=== PATIENT | female | born 1965 | race Caucasian/White ===

== ENCOUNTER 2017-11-08 02:44 | Outpatient (CLI) | payer MEDICARE, SELFPAY ==
[2017-11-08 12:00] LABS: ALT 19 U/L (12-78); AST 22 U/L (15-37); Albumin 3.7 g/dL (3.4-5.0); Alkaline Phosphatase 113 U/L (46-116); Anion Gap 8.2 mmol/L (3-11); BUN 10 mg/dL (7-18); Bilirubin, Total 0.3 mg/dL (0.2-1.0); CO2 30.8 mmol/L (21.0-32.0); CREATININE 0.79 mg/dL (0.55-1.02); Calcium 9.3 mg/dL (8.5-10.1); Chloride 99 mmol/L (98-107); Glucose 116 mg/dL (70-100); Potassium 4.8 mmol/L (3.5-5.1); Sodium 138 mmol/L (136-145); TSH (W/Ref FT4) 2.54 uIU/mL (0.358-3.74); Total Protein 7.8 g/dL (6.4-8.2)
== END 2017-11-08 03:04 ==
PROVIDERS: PCP Nurse Practitioner; Visit Provider Nurse Practitioner
DX: E03.9 Hypothyroidism, unspecified (principal)
CPT/HCPCS: 36415; 80053; 84443

== ENCOUNTER 2019-08-02 02:25 | Outpatient (CLI) | payer MEDICARE, SELFPAY ==
[2019-08-02 15:23] LABS: ALT 22 U/L (14-59); AST 26 U/L (15-37); Albumin 3.7 g/dL (3.4-5.0); Alkaline Phosphatase 108 U/L (46-116); Anion Gap 8.5 mmol/L (3-11); BUN 8 mg/dL (7-18); Bilirubin, Total 0.4 mg/dL (0.2-1.0); CO2 28.5 mmol/L (21.0-32.0); CREATININE 0.75 mg/dL (0.55-1.02); Calcium 8.9 mg/dL (8.5-10.1); Calculated LDL 134 mg/dL (<100); Chloride 98 mmol/L (98-107); Cholesterol 218 mg/dL (<200); Glucose 117 mg/dL (74-106); HDL Cholesterol 68 mg/dL (40-60); Sodium 135 mmol/L (136-145); TSH (W/Ref FT4) 2.85 uIU/mL (0.36-3.74); Total Protein 7.3 g/dL (6.4-8.2); Triglyceride 83 mg/dL (<150)
== END 2019-08-02 02:45 ==
PROVIDERS: PCP Nurse Practitioner; Visit Provider Nurse Practitioner
DX: R73.9 Hyperglycemia, unspecified (principal); E03.9 Hypothyroidism, unspecified; E78.5 Hyperlipidemia, unspecified
CPT/HCPCS: 36415; 80053; 80061; 84443

== ENCOUNTER 2019-08-08 09:55 | Emergency (ER) | payer MEDICARE, SELFPAY ==
[2019-08-08 09:57] VITALS: BP 132/82; PULSE 70; RESP 15; TEMP 37.1; O2SAT 95
--- NOTE | 2019-08-08 10:00 | DI.RAD_ITS ---
EXAM: XR KNEE LT 4V+ CLINICAL HISTORY: fall/injury. TECHNIQUE: 2D digital imaging was performed. COMPARISON: No exams were available for comparison FINDINGS: The bones are diffusely osteopenic. The patella is laterally subluxed. No acute fracture or disloca tion is seen. Chondrocalcinosis of the femoral tibial joint is present. The soft tissues are unrema rkable. IMPRESSION: 1. No acute fracture. 2. Lateral subluxation of the patella. DATA REPOSITORY: RADIATION DOSE DELIVERED:
--- NOTE | 2019-08-08 10:04 | W.ED.GENAD ---
Discharge Plan Disposition Patient Disposition: HOME Condition: Stable Discharge Details Chief Complaint: Orthopedic Clinical Impression: Effusion of knee Primary Care Provider: Chayo Tracey ED Provider: Valdemar Sullivan Home Meds and New Rx's Prescriptions: Continued levothyroxine 50 mcg tablet 50 mcg PO DAILY RF: 0 Discharge Instructions Instructions: Knee Pain (ED) Additional Instructions: As we discussed there is no fracture. There is a small joint effusion seen. What appears to be a chronic subluxation of the patella. I did have care management talkative additional resources, please follow their recommendations. I will give you a referral to orthopedics if conservative therapy of resting, elevating, cool compresses, [id number] Tylenol as directed, does not help with the discomfort in the next 3-5 days. Please watch for new or worsening symptoms and return to the ER for any concerns Referrals: Solo Green MD [ [facility] STAFF PHYSICIAN] - Medical Decision Making Pleasant 53-year-old female with Down syndrome, nonverbal, fell on , now increasing left knee pain, not wanting to bear weight. Patient does have a walker at home the walker does have a seat and she is able to scoot around. Neuro, vascular, tendon intact. Appears to have a baseline deformity-subluxation. Will obtain x-ray for further evaluation X-ray read by radiology as no obvious fracture, subluxation noted of the patella. Given that she does live at home with her mother, I did have care management get involved in the case to see if any additional home resources could be beneficial, please see their note. Discussed x-ray findings with patient and family. Given the limited evaluation and x-ray, will obtain CT imaging for further investigation as a fracture may change the overall outcome. Will give 1 mg p.o. Ativan and try a soft leg immobilizer to keep the knee fairly straight during the CT. Patient tolerated CT without difficulty. There is a small joint effusion. No acute fracture. Lateral subluxation of the patella. Discussed findings with patient and mother. Again mother reports that the subluxation is baseline. Discussed options with mother. She does not request any additional assistance and feels as though she cannot adequately handle the situation at home. Patient will continue using walker, and I will provide orthopedic referral. HPI General Mode of arrival: EMS. Date/Time Provider Initiated Documentation: 08/08/19 09:59. Limitations to Documentation: language barrier. Information obtained by: patient, family and EMS. HPI Narrative: This is a 53-year-old female with history of Down syndrome, hypothyroidism, who is essentially nonverbal presents with EMS and her mother for evaluation of a left knee injury that occurred on . Patient typically ambulates with a walker and mother reports that she has a baseline patella issue however has been told it is not bothering her that orthopedics would not aggressively treat. Apparently on she had a twist or fall injury while in the bathroom, this was not witnessed but mother was in the other room, heard it happened, went directly into the room and she was rubbing her left knee. Denies any other injury. Mother reports that she did not strike her head, has been using her upper extremities normally, and she was actually able to bear weight using a walker on and Wednesday. It seems like the pain in her left knee has progressively gotten worse over the past few days to the point now where she is not able to bear weight even using a walker. Given she is nonverbal, history and physical is slightly challenging. Mother currently has no additional concerns and believes that the only issue at hand here is that of a left knee injury. Related Data Home Medications Medication Instructions Recorded Confirmed levothyroxine 50 mcg PO DAILY 08/08/19 08/08/19 Allergies Allergy/AdvReac Type Severity Reaction Status Date / Time No Known Allergies Allergy Unverified 08/08/19 10:04 General Stated Complaint: Orthopedic PAPITO: 4 Review of Systems Constitutional Constitutional: Denies fever(s) Gastrointestinal Gastrointestinal: Denies vomiting Integumentary/Breasts Skin/Breast: Denies rash [facility] Medical History Down syndrome (Acute) Hip dislocation, right (Acute) Hypothyroidism (Chronic) Surgical History Previous back surgery (Acute) Social History Smoking/Tobacco Use Status: Never Alcohol Intake: never Substance use type: does not use Do you feel safe at home: Yes Do you feel safe in your relationship?: Yes Exam Const General: cooperative, healthy appearing, comfortable and no acute distress Orientation: alert and awake [facility] Head: normal to inspection, normocephalic and atraumatic Mouth: moist mucous membranes Eyes Conjunctivae: conjunctivae normal Neck Neck: normal visual inspection, trachea midline and supple Resp Effort & Inspection: normal respiratory effort and able to speak in complete sentences Auscultation: clear to auscultation bilaterally Cardio Rate: regular rate Rhythm: regular rhythm Skin General skin exam: no rashes or lesions noted Neuro General: patient alert, patient awake, moves all extremities and no focal motor deficits Sensory Exam: no sensory deficits noted Extrem Left lower extremity: knee Details: abnormal to inspection (Lateral irregularity of patella, mother reports this is baseline), tenderness (Difficult exam, diffuse mild anterior), abnormal ROM (Prefers to hold in flexion, limited full extension) and knee ligament exam normal (Difficult exam, seems stable) Psych Appearance: grossly normal Mental Status: mental status grossly normal Course Vital Signs Vital signs: Vital Signs Temperature 37.1 C 08/08/19 09:57 Pulse 70 08/08/19 09:57 Respiratory Rate 15 08/08/19 09:57 Blood Pressure 132/82 08/08/19 09:57 Pulse Oximetry 95 08/08/19 09:57 Temperature 37.1 C 08/08/19 09:57 Temperature Source Tympanic 08/08/19 09:57 Pulse 70 08/08/19 09:57 Respiratory Rate 15 08/08/19 09:57 Respiratory Effort Non-Labored 08/08/19 10:00 Blood Pressure 132/82 08/08/19 09:57 Blood Pressure Position Sitting 08/08/19 09:57 Pulse Oximetry 95 08/08/19 09:57 Oxygen Delivery Method Nasal Cannula 08/08/19 09:57 Comment 08/08/19 09:57
--- NOTE | 2019-08-08 10:59 | CMPROGNOTE_ITS ---
- If Service Date Differs Date of service: 08/08/19 Time of Service: 10:59 Care Management Progress Note S/O: Kym lives in a ground floor apartment in [facility] with her mother, Roya. Kym has a diagnosis of Downs Syndrome and is essentially non-verbal. Her mom has been her caregiver since and mom states the two of them are managing well at home. Kym uses a walker and mom reports the walker has a seat and when tired, Kym sits on the seat and mom pushes her around their apartment. Roya states they also have a wheelchair which they use to get Kym to and from the car. Roya states she gives Kym sponge baths as Kym has never like showering. She further shares she does not drive, but has family members who drive them to appointments. Her [id number] also helps care for Kym at home when needed. A: Kym is a 53 year old female who comes to the ED for a left knee injury. P: CM discusses a referral to Home Health but Roya declines, saying she will call if she finds she needs help at home.
--- NOTE | 2019-08-08 11:00 | DI.CT_ITS ---
EXAM: CT LOWER EXTREMITY LT WO CLINICAL HISTORY: Fall, will not bear weight. TECHNIQUE: Imaging Protocol: Axial computed tomography images with coronal and sagittal reformatted images were created and reviewed. COMPARISON: CR XR KNEE LT 4V+ from 08/08/2019 FINDINGS: Bones: The osseous structures and articular surfaces are intact. No acute fracture is identified. T here is lateral subluxation of the patella. No cellulitic or osteomyelitic changes are identified. There is diffuse osteopenia. There is chondrocalcinosis in the femoral tibial joint space. There is a small joint effusion. Soft Tissues: Normal. IMPRESSION: 1. No acute fracture. 2. Lateral subluxation of the patella. 3. Small joint effusion. 4. The findings were discussed with the emergency department on the date of the examination. RADIATION DOSE DELIVERED: Total DLP Total DLP DATA REPOSITORY: All CT scans at this facility are submitted to the National Radiology Data Registry (NRDR) Dose Index Registry (DIR) with the [employer] (ACR). RADIATION OPTIMIZATION: All CT scans at this facility use at least one of these dose optimization te chniques: automated exposure control; mA and/or kV adjustment per patient size (includes targeted exa ms where dose is matched to clinical indication); or iterative reconstruction.
[2019-08-08] MEDS: LORazepam 1 MG TAB PO (11:16)
[2019-08-08 12:34] VITALS: BP 109/85; PULSE 77; RESP 16; TEMP 36.7; O2SAT 100
== END 2019-08-08 12:48 | disposition home or self-care (01) ==
PROVIDERS: Emergency Provider Physician Assistant; PCP Nurse Practitioner
DX: M25.462 Effusion, left knee (principal); Q90.9 Down syndrome, unspecified; M22.12 Recurrent subluxation of patella, left knee
CPT/HCPCS: 29505; 99284; 73564; 73700

== ENCOUNTER 2020-09-27 02:20 | Outpatient (CLI) | payer MEDICARE, SELFPAY ==
[2020-09-27 11:07] LABS: Hemoglobin A1C 5.7 % (<5.7)
== END 2020-09-27 02:21 | disposition home or self-care (01) ==
LOC: LBO 02:20
PROVIDERS: PCP Nurse Practitioner; Visit Provider Nurse Practitioner
DX: R73.9 Hyperglycemia, unspecified (principal); E03.9 Hypothyroidism, unspecified; E78.5 Hyperlipidemia, unspecified
CPT/HCPCS: 36415; 83036

== ENCOUNTER 2021-09-16 03:35 | Outpatient (CLI) | payer MEDICARE, MEDICAID, SELFPAY ==
[2021-09-16 10:31] LABS: Calculated LDL 150 mg/dL (<100); Cholesterol 235 mg/dL (<200); HDL Cholesterol 70 mg/dL (40-60); TSH 0.11 uIU/mL (0.36-3.74); Triglyceride 79 mg/dL (<150)
== END 2021-09-16 03:36 | disposition home or self-care (01) ==
LOC: LBO 03:36
PROVIDERS: PCP Nurse Practitioner Family; Visit Provider Nurse Practitioner Family
DX: E03.9 Hypothyroidism, unspecified (principal)
CPT/HCPCS: 36415; 80061; 84443

== ENCOUNTER 2021-10-20 03:40 | Outpatient (CLI) | payer MEDICARE, SELFPAY ==
[2021-10-20 13:17] LABS: TSH (W/Ref FT4) 0.07 uIU/mL (0.36-3.74)
[2021-10-20 13:34] LABS: FREE T4 1.27 ng/dL (0.76-1.46)
== END 2021-10-20 03:41 | disposition home or self-care (01) ==
LOC: LBO 03:40
PROVIDERS: PCP Nurse Practitioner Family; Visit Provider Nurse Practitioner Family
DX: E03.9 Hypothyroidism, unspecified (principal)
CPT/HCPCS: 36415; 84439; 84443

== ENCOUNTER 2022-06-05 01:08 | Outpatient (CLI) | payer MEDICARE, SELFPAY ==
[2022-06-05 13:00] LABS: TSH (W/Ref FT4) 4.17 uIU/mL (0.36-3.74)
[2022-06-05 13:17] LABS: FREE T4 0.99 ng/dL (0.76-1.46)
== END 2022-06-05 01:09 | disposition home or self-care (01) ==
LOC: LOS 01:09
PROVIDERS: PCP Nurse Practitioner Family; Visit Provider Nurse Practitioner Family
DX: E03.9 Hypothyroidism, unspecified (principal)
CPT/HCPCS: 36415; 84439; 84443

== ENCOUNTER 2022-10-01 10:28 | Outpatient (REF) | payer OTHER, SELFPAY ==
[2022-10-01 18:15] LABS: Bilirubin Negative (Negative); Blood Small (Negative); Clarity Clear (Clear); Glucose Negative (Negative); Ketones Negative (Negative); Leukocyte Esterase Small (Negative); Nitrite Positive (Negative); Urobilinogen 0.2 mg/dL (Up to 0.2); pH 7.5 (5-8)
[2022-10-01 18:27] LABS: Bacteria Moderate HPF (Negative); C & S Indicated? Yes; Casts Negative LPF (Negative); Crystals Negative HPF (Negative); Epithelial Cells Few HPF (Negative); Mucus Negative (Negative)
== END 2022-10-01 10:29 | disposition home or self-care (01) ==
LOC: LBN 10:28
PROVIDERS: PCP Nurse Practitioner Family; Visit Provider Nurse Practitioner Family
DX: R82.998 Other abnormal findings in urine (principal)
CPT/HCPCS: 87077; 81003; 81015; 87086; 87186

== ENCOUNTER 2022-10-15 18:52 | Outpatient (REF) | payer OTHER, SELFPAY ==
[2022-10-15 16:18] LABS: Bilirubin Negative (Negative); Blood Moderate (Negative); Clarity Clear (Clear); Glucose Negative (Negative); Ketones Negative (Negative); Leukocyte Esterase Small (Negative); Nitrite Negative (Negative); Urobilinogen 0.2 mg/dL (Up to 0.2)
[2022-10-15 17:02] LABS: Bacteria Few HPF (Negative); C & S Indicated? Yes; Casts Negative LPF (Negative); Crystals Negative HPF (Negative); Epithelial Cells Rare HPF (Negative); Mucus Negative (Negative); Other Cells Rare Transitional (Negative); WBC 20-50 HPF (0-5)
== END 2022-10-15 18:53 | disposition home or self-care (01) ==
LOC: LBN 18:52
PROVIDERS: PCP Nurse Practitioner Family; Visit Provider Nurse Practitioner Family
DX: R30.0 Dysuria (principal)
CPT/HCPCS: 81003; 81015; 87086

== ENCOUNTER → 2022-11-04 11:06 | Outpatient (BNVA) | payer OTHER, SELFPAY | PROVIDERS: PCP Nurse Practitioner Family; Referring Provider Nurse Practitioner Family; Visit Provider Surgery | DX: K59.00 Constipation, unspecified (principal); Q90.9 Down syndrome, unspecified | CPT/HCPCS: 99203 ==

== ENCOUNTER 2022-11-21 09:49 | Emergency (ER) | payer OTHER, SELFPAY ==
[2022-11-21 09:53] VITALS: BP 118/86; PULSE 70; RESP 14; TEMP 36.7; O2SAT 100
[2022-11-21 10:35] LABS: Bilirubin Small (Negative); Blood Large (Negative); Clarity Cloudy (Clear); Glucose Negative (Negative); Ketones Negative (Negative); Leukocyte Esterase Trace (Negative); Nitrite Negative (Negative); Urobilinogen 0.2 mg/dL (Up to 0.2)
[2022-11-21 10:44] LABS: C & S Indicated? No; RBC >50 HPF (0-2)
--- NOTE | 2022-11-21 10:45 | DI.CT_ITS ---
Exam(s) CT ABDOMEN PELVIS WO EXAM: CT ABDOMEN PELVIS WO CLINICAL HISTORY: left flank pain, gross hematuria. TECHNIQUE: Imaging Protocol: Axial computed tomography images with coronal and sagittal reformatted images were created and reviewed. Oral: yes / no COMPARISON: No exams were available for comparison FINDINGS: ABDOMEN: Exam limited by artifact from spinal jahaira. Lung Bases: Normal where visualized. Trace pericardial effusion. Liver: Normal density. No measurable mass. Gallbladder and biliary tract: No radiodense calculus or dilation. Pancreas: Normal density, no abnormal calcifications or inflammatory process. Spleen: Normal. Kidneys: Normal size, contour and axis. No radiodense stones or obstructive uropathy. No masses seen. Adrenal glands: No masses seen. Lymph nodes: Within normal limits. Abdominal Aorta: Abdominal portion non-dilated. PELVIS: Bladder: Moderate distention. Diffuse wall thickening. No stone or focal mass visible. Bowel: No obstruction or bowel wall thickening. Peritoneal cavity: No ascites, collection or mesenteric inflammatory response. Reproductive organs: Within normal limits. Bones: Spinal jahaira. Severe scoliosis. Degenerative changes in the hips. IMPRESSION: Diffuse bladder wall thickening. This could be secondary to inflammation or infection. No focal ze dder mass or stone identified. No renal calculi or hydronephrosis. Kidneys are somewhat obscured by artifact from spinal jahaira. RADIATION DOSE DELIVERED: Total DLP DATA REPOSITORY: All CT scans at this facility are submitted to the National Radiology Data Registry (NRDR) Dose Index Registry (DIR) with the [employer] (ACR). RADIATION OPTIMIZATION: All CT scans at this facility use at least one of these dose optimization te chniques: automated exposure control; mA and/or kV adjustment per patient size (includes targeted exa ms where dose is matched to clinical indication); or iterative reconstruction.
[2022-11-21 12:12] LABS: Abs Immature Grans 0.01 10^3/uL (0.0-0.06); Absolute Basophil Count 0.09 10^3/uL (0.0-0.2); Absolute Eosinophil Count 0.05 10^3/uL (0.0-0.7); Absolute Lymphocyte Count 1.12 10^3/uL (1.2-3.4); Absolute Monocyte Count 0.58 10^3/uL (0.1-0.8); Absolute Neutrophil Count 3.47 10^3/uL (1.2-6.7); Basophils % 1.7; Eosinophils % 0.9; HCT 46.8 % (36.0-46.0); HGB 15.4 g/dL (11.2-15.7); Immature Grans % 0.2; Lymphocytes % 21.1; MCH 33.8 pg (27.0-33.0); MCHC 32.9 % (32.0-36.0); MCV 103 fL (80-95); MPV 8.1 fL (8.0-11.0); Monocytes % 10.9; Neutrophils % 65.2; Platelet Count 452 10^3/uL (130-400); RBC 4.56 10^6/uL (3.93-5.22); RDW 13.7 % (11.7-14.6); RDW-SD 52.5 fL; WBC 5.32 10^3/uL (4.4-10.8)
[2022-11-21 12:32] LABS: ALT 20 U/L (14-59); AST 22 U/L (15-37); Albumin 3.6 g/dL (3.4-5.0); Alkaline Phosphatase 125 U/L (46-116); Anion Gap 6.2 mmol/L (3-11); BUN 6 mg/dL (7-18); Bilirubin, Total 0.3 mg/dL (0.2-1.0); CO2 30.8 mmol/L (21.0-32.0); CREATININE 0.7 mg/dL (0.55-1.02); Calcium 9.3 mg/dL (8.5-10.1); Chloride 98 mmol/L (98-107); Estimated GFR 102.71 (mL/min/1.73m2); Glucose 101 mg/dL (74-106); Lipase 53 U/L (16-77); Sodium 135 mmol/L (136-145); Total Protein 8.2 g/dL (6.4-8.2)
--- NOTE | 2022-11-21 14:13 | DI.VRAD_ITS ---
PROCEDURE INFORMATION: Exam: CT Abdomen And Pelvis Without Contrast Exam date and time: 11/21/2022 1:52 PM Age: 56 years old Clinical indication: Other: Left flank pain, gross hematuria; Prior surgery; Surgery date: 6+ months; Surgery type: Spine TECHNIQUE: Imaging protocol: Computed tomography of the abdomen and pelvis without contrast. COMPARISON: CT LOWER EXTREMITY LT WO 08/08/2019 11:42 AM FINDINGS: Heart: Small pericardial effusion Liver: Normal. No mass. Gallbladder and bile ducts: Normal. No calcified stones. No ductal dilation. Pancreas: Normal. No ductal dilation. Spleen: Normal. No splenomegaly. Adrenal glands: Normal. No mass. Kidneys and ureters: There is no evidence of renal or ureteral calcifications. 13 x 10 mm simple cyst left kidney. . No follow-up imaging recommended . Stomach and bowel: Unremarkable. No obstruction. No mucosal thickening. Appendix: No evidence of appendicitis. Intraperitoneal space: Unremarkable. No free air. No significant fluid collection. Vasculature: Unremarkable. No abdominal aortic aneurysm. Lymph nodes: Unremarkable. No enlarged lymph nodes. Urinary bladder: The bladder wall measures 8 mm. This is nonspecific and may represent inflammation or infection. Neoplastic process is included in the differential. Reproductive: Unremarkable as visualized. Bones/joints: Single jahaira along the thoracolumbar spine Soft tissues: Unremarkable. IMPRESSION: The bladder wall measures 8 mm. This is nonspecific and may represent inflammation or infection. Neoplastic process is included in the differential. Dictated and Authenticated by: Aftab Arambula MD. Ordering:EROS Albarran MD
--- NOTE | 2022-11-21 14:38 | NUR.NOTE ---
Nursing Note: referral faded to urology
--- NOTE | 2022-11-21 15:23 | ED.GENADUL_ITS ---
Discharge Plan Disposition Patient Disposition: Home Discharge Details Clinical Impression: Gross hematuria, Bladder wall thickening Primary Care Provider: Toribio Bean ED Provider: Avis Wang Home Meds and New Rx's Prescriptions: Continued triamcinolone acetonide 0.1 % cream 1 applic topical BID Qty: 15 0RF lorazepam 1 mg tablet 1 mg PO DAILY PRN (Reason: anxiety) Qty: 28 0RF betamethasone dipropionate 0.05 % cream 1 applic topical BID PRN (Reason: rash) Qty: 45 0RF levothyroxine 50 mcg tablet 50 mcg PO DAILY Qty: 90 3RF Rx Instructions: Wed, , Sat : half pill. Wed, Wed, Wed, Sun: Full dose Metamucil 3.4 gram/5.4 gram powder 1 tbsp PO DAILY Qty: 660 3RF Patient Comments: doctor switched to another med Rx Instructions: mix into at least 8 oz of water or juice before administering lactulose 10 gram/15 mL solution 10 g PO DAILY PRN (Reason: constipation) Qty: 237 0RF sennosides [Natural Senna Laxative] 8.6 mg tablet 8.6 mg PO DAILY Discharge Instructions Instructions: Hematuria (ED) Additional Instructions: You have thickening of your bladder with blood, you will need outpatient reassessment this week, please call Dr. Aviles's office if you do not hear from them on Wednesday to schedule an appointment, let them know you have blood in your urine with a family history of bladder cancer There is thickening on CT scan, with worsening clots or difficulties with urination, you should return for reassessment, with weakness, fever, or low blood pressure, please return for reassessment Continue to stay hydrated Referrals: Albert Aviles MD [ [facility] STAFF PHYSICIAN] - Medical Decision Making Patient is alert and oriented, she is hemodynamically stable, CBC does not show evidence of acute abnormality, chemistry within normal limits Urinalysis is greater than 50 red blood cells, urine was sent for culture, CT shows evidence of bladder wall thickening, cyst on kidney, no evidence of obstructive process, no clots noted, able to urinate without difficulty in the emergency department, postvoid residual reassuring We will refer for emergent outpatient reassessment with Dr. Aviles, urology for gross hematuria with family history of bladder cancer Return precautions reviewed in detail, remains hemodynamically stable throughout encounter, in best interest of patient to be discharged home at this time, has guardian, sister in law who is very involved with her care with good report with patient and will monitor very closely HPI General Date/Time Provider Initiated Documentation: 11/21/22 10:09 . HPI Narrative: This 53-year-old female with history of Down's, developmental delay. Family history of bladder cancer. presents with gross hematuria with some clots noted this morning. No reported anticoagulation. Patient does not have pain complaints but is a poor historian at baseline secondary to developmental delay. No change in mentation or fever reported. Symptoms started this morning. Was treated 3 weeks ago for urinary tract infection. Had resolution of symptoms at that time Related Data Home Medications Medication Instructions Recorded Confirmed lorazepam 1 mg tablet 1 mg PO DAILY PRN anxiety #28 tabs 05/22/21 11/21/22 betamethasone dipropionate 0.05 % 1 applic topical BID PRN rash #45 11/17/21 11/21/22 topical cream grams levothyroxine 50 mcg tablet 50 mcg PO DAILY #90 tabs 09/28/22 11/21/22 psyllium husk 3.4 gram/5.4 gram 1 tbsp PO DAILY #660 grams 09/28/22 11/21/22 oral powder (Metamucil) triamcinolone acetonide 0.1 % 1 applic topical BID #15 grams 09/30/22 11/21/22 topical cream lactulose 10 gram/15 mL oral 10 g (15 mL) PO DAILY PRN 10/30/22 11/21/22 solution constipation #237 mL sennosides 8.6 mg tablet (Natural 8.6 mg PO DAILY 11/21/22 11/21/22 Senna Laxative) Previous Rx's Medication Instructions Recorded lorazepam 1 mg tablet 1 mg PO DAILY PRN anxiety #28 tabs 05/22/21 betamethasone dipropionate 0.05 % 1 applic topical BID PRN rash #45 11/17/21 topical cream grams levothyroxine 50 mcg tablet 50 mcg PO DAILY #90 tabs 09/28/22 psyllium husk 3.4 gram/5.4 gram 1 tbsp PO DAILY #660 grams 09/28/22 oral powder (Metamucil) triamcinolone acetonide 0.1 % 1 applic topical BID #15 grams 09/30/22 topical cream lactulose 10 gram/15 mL oral 10 g (15 mL) PO DAILY PRN 10/30/22 solution constipation #237 mL Allergies Allergy/AdvReac Type Severity Reaction Status Date / Time No Known Allergies Allergy Verified 11/21/22 10:33 General Stated Complaint: Urinary PAPITO: 3 PFSH All Active Problems (Updated 11/21/22 @ 14:42 by NEGIN Freeman) Bladder wall thickening (Acute) Gross hematuria (Acute) Bowel and bladder incontinence (Acute) Constipation (Acute) Down syndrome (Acute) Hypothyroidism (Chronic) Blood glucose elevated (Acute) Hyperlipemia (Acute) Subluxation of patella (Acute) Rash (Acute) Bilateral impacted cerumen (Acute) Urinary tract infection (Acute) Medical History (Updated 11/21/22 @ 14:42 by NEGIN Freeman) Hip dislocation, right Surgical History Previous back surgery Family History Mother , 82 No problems noted. Father , 69 Bladder cancer Sister No problems noted. Brother No problems noted. Social History Smoking/Tobacco Use Status: Never Second Hand Exposure: No Smoking risk assessment performed?: Yes Alcohol Intake: never Drug use: Never Substance use type: does not use Caregiver/Support person: Yes Household members: family Housing: house Communication Needs: Hard of Hearing, Sign Language, Cannot Read and Language Barriers Do you need help understanding health information?: Always Pets and animals: Yes Pets and animals: dog(s) Sexually active: No Current gender identity: female How often do you talk on the phone with friends or family?: never How often do you get together with friends or relatives?: once per week How often do you attend yazdanism or latter day services?: decline to answer Do you belong to any clubs or organized social groups?: no Panel score (0-1 are the most socially isolated patients): 0 What type of physical activity do you participate in: none Frequency: does not exercise Helen/Amish: No preference Seatbelt use: always Helmet use: No Drive intox or ride w/intox local tanker truck driver: No Do you feel safe at home: Yes Do you feel safe in your relationship?: Yes Course Vital Signs Vital signs: Vital Signs Temperature 36.7 C 11/21/22 09:53 Pulse 70 11/21/22 09:53 Respiratory Rate 14 11/21/22 09:53 Blood Pressure 118/86 11/21/22 09:53 Pulse Oximetry 100 11/21/22 09:53 Temperature 36.7 C 11/21/22 09:53 Temperature Source Skin 11/21/22 09:53 Pulse 70 11/21/22 09:53 Respiratory Rate 14 11/21/22 09:53 Respiratory Effort Normal, Non-Labored 11/21/22 10:08 Blood Pressure 118/86 11/21/22 09:53 Blood Pressure Position Sitting 11/21/22 09:53 Pulse Oximetry 100 11/21/22 09:53 Oxygen Delivery Method Room Air 11/21/22 09:53 Oxygen Flow Rate 0 11/21/22 09:53 Pain Level 0 11/21/22 09:53 Lab/Test Results Lab/Test Results: 11/21/22 10:28 Urine - Clean Catch Urine Culture - Pending Laboratory Tests Range/Units 11/21/22 11/21/22 10:28 11:45 WBC (4.4-10.8) 10^3/uL 5.32 RBC (3.93-5.22) 10^6/uL 4.56 Hgb (11.2-15.7) g/dL 15.4 Hct (36.0-46.0) % 46.8 H MCV (80-95) fL 103 H MCH (27.0-33.0) pg 33.8 H MCHC (32.0-36.0) % 32.9 RDW (11.7-14.6) % 13.7 Plt Count (130-400) 10^3/uL 452 H MPV (8.0-11.0) fL 8.1 Immature Gran % 0.2 Neutrophils % 65.2 Lymphocytes % 21.1 Monocytes % 10.9 Eosinophils % 0.9 Basophils % 1.7 Nucleated RBC % (0.0-0.3) % 0.0 Absolute Neutrophils (1.2-6.7) 10^3/uL 3.47 Absolute Lymphocytes (1.2-3.4) 10^3/uL 1.12 L Absolute Monocytes (0.1-0.8) 10^3/uL 0.58 Absolute Eosinophils (0.0-0.7) 10^3/uL 0.05 Absolute Basophils (0.0-0.2) 10^3/uL 0.09 Sodium (136-145) mmol/L 135 L Potassium (3.5-5.1) mmol/L 4.0 Chloride (98-107) mmol/L 98 Carbon Dioxide (21.0-32.0) mmol/L 30.8 Anion Gap (3-11) mmol/L 6.2 BUN (7-18) mg/dL 6 L Creatinine (0.55-1.02) mg/dL 0.7 Est GFR (CKD-EPI 2020) (mL/min/1.73m2) 102.71 Glucose (74-106) mg/dL 101 Calcium (8.5-10.1) mg/dL 9.3 Total Bilirubin (0.2-1.0) mg/dL 0.3 AST (15-37) U/L 22 ALT (14-59) U/L 20 Alkaline Phosphatase (46-116) U/L 125 H Total Protein (6.4-8.2) g/dL 8.2 Albumin (3.4-5.0) g/dL 3.6 Lipase (16-77) U/L 53 Urine Color (Yellow) Red Urine Clarity (Clear) Cloudy Urine pH (5-8) 6.0 Ur Specific Wallace (1.005-1.025) 1.020 Urine Protein (Negative) mg/dL 100 H Urine Ketones (Negative) mg/dL Negative Urine Blood (Negative) Large H Urine Nitrite (Negative) Negative Urine Bilirubin (Negative) Small H Urine Urobilinogen (Up to 0.2) mg/dL 0.2 Ur Leukocyte Esterase (Negative) Trace H Urine RBC (0-2) HPF >50 H Urine WBC Not Applicable Ur Epithelial Cells Not Applicable Urine Crystals Not Applicable Urine Bacteria Not Applicable Urine Mucus Not Applicable Ur Culture Indicated? No Urine Glucose (Negative) mg/dL Negative
== END 2022-11-21 14:52 | disposition home or self-care (01) ==
PROVIDERS: Emergency Provider Physician Assistant; PCP Nurse Practitioner Family
DX: R31.9 Hematuria, unspecified (principal); Q90.9 Down syndrome, unspecified; Z80.52 Family history of malignant neoplasm of bladder
CPT/HCPCS: 80053; 83690; 99284; 74176; 81003; 81015; 85025; 87086

== ENCOUNTER → 2022-11-26 10:36 | Outpatient (BNVA) | payer OTHER, SELFPAY | PROVIDERS: PCP Nurse Practitioner Family; Referring Provider Nurse Practitioner Family; Visit Provider Nurse Practitioner Gerontology | DX: R31.0 Gross hematuria (principal) | CPT/HCPCS: 99215 ==

== ENCOUNTER 2022-12-03 06:02 | Day surgery (SDC) | payer OTHER, SELFPAY ==
[2022-12-03] VITALS (9 sets, daily range): BP systolic 100–182; BP diastolic 72–118; PULSE 55–83; RESP 13–24; TEMP 36–36.7; O2SAT 96–100; BMI 19.3
--- NOTE | 2022-12-03 06:54 | W.PM.HP.N ---
Date of service: 12/03/22 Time of Service: 06:54 Assessment and Plan Assessment and plan (1) Gross hematuria: Status: Acute Assessment and plan: We will complete her hematuria workup with cystoscopy and bilateral retrograde pyelogram. If a visible bladder lesion is present, we will be prepared to perform TURBT. If no visible tumor is present, I will still plan to preform bladder biopsies given her strong family history of bladder cancer History of Present Illness History of Present Illness Chief Complaint: Gross hematuria Narrative: This is a 57-year-old woman with Down syndrome. She is not able to provide a history on her own. She apparently has a history of occasional urinary tract infections. More recently, she has had gross hematuria with clots. Urine samples that were obtained when the hematuria started were not suggestive of an infection. She had a noncontrast CT scan which did not show any strong family history of bladder cancer. She presents for cystoscopy with bilateral retrograde pyelogram and possible transurethral resection of any bladder lesion. Review of Systems Unobtainable due to (unable to obtain from pt - pt is nonverbal) PFSH All Active Problems Bladder wall thickening (Acute) Gross hematuria (Acute) Bowel and bladder incontinence (Acute) Constipation (Acute) Urinary tract infection (Acute) Bilateral impacted cerumen (Acute) Rash (Acute) Subluxation of patella (Acute) Hyperlipemia (Acute) Blood glucose elevated (Acute) Hypothyroidism (Chronic) Down syndrome (Acute) Medical History Hip dislocation, right Surgical History Previous back surgery metal jahaira in spine Family History Mother , 82 No problems noted. Father , 69 Bladder cancer Sister No problems noted. Brother No problems noted. Social History Smoking/Tobacco Use Status: Never Second Hand Exposure: No Smoking risk assessment performed?: Yes Alcohol Intake: never Drug use: Never Substance use type: does not use Caregiver/Support person: Yes Household members: family Housing: house Communication Needs: Hard of Hearing, Sign Language, Cannot Read and Language Barriers Do you need help understanding health information?: Always Pets and animals: Yes Pets and animals: dog(s) Sexually active: No Current gender identity: female How often do you talk on the phone with friends or family?: never How often do you get together with friends or relatives?: once per week How often do you attend mormon or christianity services?: decline to answer Do you belong to any clubs or organized social groups?: no Panel score (0-1 are the most socially isolated patients): 0 What type of physical activity do you participate in: none Frequency: does not exercise Helen/Restoration: No preference Seatbelt use: always Helmet use: No Drive intox or ride w/intox motor coach driver: No Meds Allergies and Home Medications Allergies Allergy/AdvReac Type Severity Reaction Status Date / Time No Known Allergies Allergy Verified 12/03/22 06:35 Home Medications Medication Instructions Recorded Confirmed Type lorazepam 1 mg tablet 1 mg PO DAILY PRN anxiety #28 tabs 05/22/21 12/03/22 Rx betamethasone dipropionate 0.05 % 1 applic topical BID PRN rash #45 11/17/21 12/03/22 Rx topical cream grams levothyroxine 50 mcg tablet 50 mcg PO DAILY #90 tabs 09/28/22 12/03/22 Rx psyllium husk 3.4 gram/5.4 gram 1 tbsp PO DAILY #660 grams 09/28/22 12/03/22 Rx oral powder (Metamucil) triamcinolone acetonide 0.1 % 1 applic topical BID #15 grams 09/30/22 12/03/22 Rx topical cream lactulose 10 gram/15 mL oral 10 g (15 mL) PO DAILY PRN 10/30/22 12/03/22 Rx solution constipation #237 mL sennosides 8.6 mg tablet (Natural 8.6 mg PO DAILY 11/21/22 12/03/22 History Senna Laxative) Exam Const Nutritional Appearance: thin Other: typical Down Syndrome facies Resp Effort & Inspection: normal respiratory effort Auscultation: clear to auscultation bilaterally Cardio Rate: regular rate Rhythm: regular rhythm Heart Sounds: no murmurs GI Inspection: normal to inspection Neuro General: patient alert and patient awake Time Spent Time spent with Patient: <40 minutes Time was spent: other
--- NOTE | 2022-12-03 07:26 | ANES.PREOP_ITS ---
General Info Date of Service Date Performed: 12/03/22 Height: 4 ft 4 in Weight: 33.8 kg Body Mass Index (BMI): 19.3 Surgical Procedure: Operation Date: 12/03/22 07:40 Proposed Procedure Side Surgeon p Cysto/ Retrograde/ Possible Transurethral Resection Bladder Tumor Bilateral Albert Aviles MD Meds Allergies and Home Medications Allergies Allergy/AdvReac Type Severity Reaction Status Date / Time No Known Allergies Allergy Verified 12/03/22 06:35 Home Medication Medication Instructions Recorded lorazepam 1 mg tablet 1 mg PO DAILY PRN anxiety #28 tabs 05/22/21 betamethasone dipropionate 0.05 % 1 applic topical BID PRN rash #45 11/17/21 topical cream grams levothyroxine 50 mcg tablet 50 mcg PO DAILY #90 tabs 09/28/22 psyllium husk 3.4 gram/5.4 gram 1 tbsp PO DAILY #660 grams 09/28/22 oral powder (Metamucil) triamcinolone acetonide 0.1 % 1 applic topical BID #15 grams 09/30/22 topical cream lactulose 10 gram/15 mL oral 10 g (15 mL) PO DAILY PRN 10/30/22 solution constipation #237 mL sennosides 8.6 mg tablet (Natural 8.6 mg PO DAILY 11/21/22 Senna Laxative) Current Visit Medications: Current Medications Generic Name Dose Route Start Last Admin Trade Name Freq PRN Reason Stop Dose Admin Ringer's Solution 1,000 mls @ 80 mls/hr 12/03/22 06:00 IV 12/03/22 23:59 INFUSION MALLORIE Cefazolin Sodium/Dextrose 2 gm in 50 mls @ 100 mls/hr 12/03/22 06:00 Ancef Duplex IVPB 12/03/22 23:59 PREOP MALLORIE IV Miscellaneous Supplies 1 each 12/03/22 06:00 Iv Access IV 12/03/22 23:59 DIRECTED MALLORIE Sodium Chloride 0 ml 12/03/22 06:00 Normal Saline Flush 10 Ml Syr IV 12/03/22 23:59 PRN PRN Sodium Chloride 0 ml 12/03/22 06:00 Normal Saline 10 Ml Vial IJ 12/03/22 23:59 DIRECTED PRN Sterile Water 0 ml 12/03/22 06:00 Water,Injection,Sterile 10 Ml Vial IJ 12/03/22 23:59 DIRECTED PRN PFSH Active Problems Active Problems: Problem Status Onset Code Bladder wall thickening N32.89 Gross hematuria R31.0 Bowel and bladder incontinence R32, R15.9 Constipation K59.00 Urinary tract infection N39.0 Bilateral impacted cerumen H61.23 Rash R21 Subluxation of patella S83.003A Hyperlipemia E78.5 Blood glucose elevated R73.9 Hypothyroidism E03.9 Down syndrome Q90.9 Medical History Medical History Hip dislocation, right Medical History Comments:: PREOP NOTE -Per [id number] states she will fight the IV and rip it out of her arm even if taped, must be sedated prior to start, takes all meds crushed in applesauce, so liquid sedation required. Had to have 4 staff hold her down in ER to get IV in. VERY COMBATIVE. Is able to have BP done as long as sister in law Jackie (who she calls Mom). Surgical History Surgical History Previous back surgery metal jahaira in spine Tobacco Smoking/Tobacco Use Status: Never Passive smoking exposure: No Second hand exposure: No Alcohol Alcohol Intake: never Substance Use Substance use: Never Substance use type: does not use Vital Signs and Lab Results Vital Signs Most Recent Vital Signs in EMR: Most Recent Vital Signs Temp Pulse Resp BP Pulse Ox 36.7 C 55 L 16 100/79 100 12/03/22 06:38 12/03/22 06:38 12/03/22 06:38 12/03/22 06:38 12/03/22 06:38 Lab Results Blood Type / Crossmatch: No Data to Display Complete Blood Count: White Blood Count 5.32 10^3/uL (4.4-10.8) 11/21/22 11:45 Red Blood Count 4.56 10^6/uL (3.93-5.22) 11/21/22 11:45 Hemoglobin 15.4 g/dL (11.2-15.7) 11/21/22 11:45 Hematocrit 46.8 % (36.0-46.0) H 11/21/22 11:45 Platelet Count 452 10^3/uL (130-400) H 11/21/22 11:45 Complete Metabolic Panel: Sodium 135 mmol/L (136-145) L 11/21/22 11:45 Potassium 4.0 mmol/L (3.5-5.1) 11/21/22 11:45 Chloride 98 mmol/L (98-107) 11/21/22 11:45 Carbon Dioxide 30.8 mmol/L (21.0-32.0) 11/21/22 11:45 BUN 6 mg/dL (7-18) L 11/21/22 11:45 Creatinine 0.7 mg/dL (0.55-1.02) 11/21/22 11:45 Est GFR (CKD-EPI 2020) 102.71 (mL/min/1.73m2) 11/21/22 11:45 Calcium 9.3 mg/dL (8.5-10.1) 11/21/22 11:45 Albumin 3.6 g/dL (3.4-5.0) 11/21/22 11:45 Glucose 101 mg/dL (74-106) 11/21/22 11:45 Liver Function Panel: Alanine Aminotransferase (ALT/SGPT) 20 U/L (14-59) 11/21/22 11: 45 Aspartate Amino Transf (AST/SGOT) 22 U/L (15-37) 11/21/22 11:45 Coagulation Panel: No Data to Display Cardiac Panel: No Data to Display Arterial Blood Gas: No Data to Display Venous Blood Gas: No Data to Display Pancreas Panel: Lipase 53 U/L (16-77) 11/21/22 11:45 Thyroid Panel: No Data to Display Infectious Disease: No Data to Display Blood Cultures: No Data to Display Toxicology Panel: No Data to Display Anesthesia Assessment and Plan Anesthesia History Personal History: No History of Anesthesia Complications Family History: No Family History of Anesthesia Complications Exercise Tolerance Exercise Tolerance: Unknown Pertinent Negatives Pertinent Negatives: No Symptoms of GERD, No Major Cardiovascular Symptoms or Complaints and No Major Pulmonary Symptoms or Complaints Cardiac & Pulmonary Exam Cardiac Exam: Normal S1/S2 Heart Sounds Pulmonary Exam: Clear Bilateral Breath Sounds Implantable Cardiac Device Does patient have a Pacemaker or an ICD?: No Airway Exam Known Difficult Airway: No Previous Airway Comments:: Unknown Mallampati Class: Unable to Assess Mouth Opening: Unable to Assess Thyromental Distance: Greater than 3 cm Neck Range of Motion: Unable to Assess Neck Circumference: Normal Teeth Condition: Edentulous ASA Classification ASA Score: ASA 2 Emergency Case?: No NPO Status NPO Status: NPO Clears >2 hours, Solids >8 hours Anesthesia Plan Resuscitation Status: Full Code Anesthesia Technique: General Anesthesia Airway Planned: Endotracheal Tube Monitors Used: Standard Monitors Preoperative Comments:: Information per Guardian
[2022-12-03] MEDS: Lactated Ringers 1,000 ML 80 ML IV (07:50)
[2022-12-03] MEDS: ceFAZolin 2 GM/50 ML BAG IVPB (08:07)
[2022-12-03] MEDS: Lidocaine 2% Jelly 11 ML SYR (08:11)
[2022-12-03] MEDS: Omnipaque 300 MG/ML 50 ML BTL (08:15)
--- NOTE | 2022-12-03 08:15 | BLADDER_PTH ---
PATIENT: Kym Quezada LOC: [facility] U#:[id number] AGE/SX: 57/F ROOM: RE12/03/[address]: Albert Aviles MD : [id number] BED: DIS: 12/03/2022 SPEC #: [id number] RECD: 12/03/22 12:37 STATUS: GUS REQ #: [id number] VIDA: 12/03/22 08:[address]: Albert Aviles DEPT: Surgical Specimen RECD BY: Avis Silva ENTERED: 12/03/22 12:38 SP TYPE: Bladder OTHR DR: Toribio Bean, GUILLERMINA Tissues: 1 - BLADDER BIOPSY Procedures: GROSS AND MICRO LEVEL 4 Comments: [id number]
--- NOTE | 2022-12-03 08:33 | DI.RAD_ITS ---
Exam(s) XR RETROGRADE IN OR EXAM: XR RETROGRADE IN OR CLINICAL HISTORY: gross hematuria. TECHNIQUE: Fluoroscopy was provided for the referring physician for guidance with performing retrogr ciara procedure. COMPARISON: CT CT ABDOMEN PELVIS WO from 11/21/2022 FINDINGS: Please see procedure note for details. Fluoro time: 24.5 seconds RADIATION DOSE DELIVERED: karlee Chino=2.01 mGy
--- NOTE | 2022-12-03 08:43 | W.PM.OP ---
Date of service: 12/03/22 Time of Service: 08:43 Operative Note Operative Note DATE OF PROCEDURE: 12/03/22 PRE-OP DIAGNOSIS: Gross hematuria POST-OP DIAGNOSIS: same PROCEDURE: cystoscopy, bilateral retrograde pyelogram, TUR biopsy of bladder SURGEON: Albert Aviles ANESTHESIA TYPE: Local By Surgeon and General LMA/ETT Refer to Anesthesia Record ESTIMATED BLOOD LOSS: 10 PATHOLOGY: other (bladder biopsy) COMPLICATIONS: None Patient was transported to: PACU Patient's condition: stable Implants: none Indications: This is a 57-year-old woman who has Down syndrome. She is nonverbal, so she is unable to provide a personal history. She has a history of occasional urinary tract infections. She also has a family history of bladder cancer. She has had recurrent episodes of gross hematuria with clots. A noncontrast CT scan did not reveal any obvious renal pathology. She presents now for cystoscopy with with bilateral retrograde pyelogram and possible TUR bladder tumor Findings: flat erythematous patch left bladder wall Procedure Description: The patient was brought to the operating room on 12/03/2022. She was given preoperative IV antibiotics. After successful induction of general anesthesia, she was placed in the dorsal lithotomy position. Her genitalia was prepped with Betadine. 2% Xylocaine jelly was instilled into the urethra to act as a local anesthetic. The 22 [place] rigid cystoscope was passed through the urethra into the bladder. The bladder was inspected using a 30 degree lens. Both ureteral orifices appeared normal with no blood seen coming from either side. Each orifice was cannulated with a 5 [place] access catheter. Retrograde pyelograms were obtained by injecting Omnipaque through the access catheter under fluoroscopic guidance. Both ureters and collecting systems appeared normal with no filling defects. Both sides drained promptly on a 5-minute drainage film. We then inspected the remainder of the bladder using both the 30 and 70 degree lens. The right side of the bladder appeared normal. On the left lateral wall, up toward the bladder neck, there was a flat erythematous area that measured less than 2 cm in diameter. No papillary or nodular lesions were seen. The remainder of the bladder including the dome and posterior wall appeared normal. I then removed the cystoscope and replaced it with a 24 [place] resectoscope sheath. Using an [employer] resectoscope and bipolar cautery, I performed TUR biopsy of the erythematous area. We cauterized the surrounding tissue and the resection site using a button electrode. All resected tissue was evacuated and sent to pathology for permanent section. At the completion of the procedure, no active bleeding was seen. The bladder was emptied and the cystoscope was removed. The patient tolerated the procedure well with no complications.
--- NOTE | 2022-12-03 08:45 | W.PM.DSUDISC ---
Date of service: 12/03/22 Time of Service: 08:45 Discharge Plan Disposition Patient Disposition: Home Condition: Stable Discharge Details Reason For Visit: cystoscopy Attending Provider: Albert Aviles Primary Care Provider: Toribio Bean Home Meds and New Rx's Prescriptions: No Action triamcinolone acetonide 0.1 % cream 1 applic topical BID Qty: 15 0RF lorazepam 1 mg tablet 1 mg PO DAILY PRN (Reason: anxiety) Qty: 28 0RF betamethasone dipropionate 0.05 % cream 1 applic topical BID PRN (Reason: rash) Qty: 45 0RF levothyroxine 50 mcg tablet 50 mcg PO DAILY Qty: 90 3RF Rx Instructions: e, , Sat : half pill. Mon, Wed, Fri, Sun: Full dose Metamucil 3.4 gram/5.4 gram powder 1 tbsp PO DAILY Qty: 660 3RF Patient Comments: doctor switched to another med Rx Instructions: mix into at least 8 oz of water or juice before administering lactulose 10 gram/15 mL solution 10 g PO DAILY PRN (Reason: constipation) Qty: 237 0RF sennosides [Natural Senna Laxative] 8.6 mg tablet 8.6 mg PO DAILY Discharge Instructions Additional Instructions: followup 2 weeks for pathology results Activity:: Activity as Tolerated Shower/Bathe:: 24 hours Diet:: As Tolerated Discharge Orders Discharge Orders: Discharge Order (Routine); Ordered 12/03/22 Ordered By: Albert Aviles DS: Diagnosis Discharge Diagnosis (1) Gross hematuria: Status: Acute
[2022-12-03] MEDS: Ketorolac 15 MG/ML VIAL IVP (09:49)
[2022-12-03] MEDS: Normal Saline Flush 10 ML SYR IV (09:50)
--- NOTE | 2022-12-03 10:57 | W.ANESPOSTOP ---
Postoperative Evaluation Date, Time and Location Date Performed: 12/03/22 Time Performed: 10:57 Patient Location: Day Surgery Unit Vital Signs Most Recent Imported Vital Signs: Most Recent Vital Signs Temp Pulse Resp BP Pulse Ox 36.3 C L 81 16 146/72 H 98 12/03/22 10:05 12/03/22 10:05 12/03/22 10:05 12/03/22 10:05 12/03/22 10:05 Pain Score Most Recent Pain Score: Most Recent Pain Score Pain Level 0 12/03/22 06:38 Assessment Mental Status: Awake (Alert & Oriented to Patient Baseline) Airway and Respiratory Function: Patent airway with normal (patient baseline) respiratory exam Cardiovascular Function: Hemodynamically Stable Hydration Status: Adequately Hydrated Nausea & Vomiting: No Nausea or Vomiting Pain: Pt. Denies Any Pain Peripheral Nerve Block: Patient did not receive a nerve block
== END 2022-12-03 11:10 | disposition home or self-care (01) ==
PROVIDERS: PCP Nurse Practitioner Family; Visit Provider Urology
PROC: 0TBB8ZZ Excision of Bladder, Via Natural or Artificial Opening Endoscopic (ICD-10-PCS; CPT 52204; principal; 2022-12-03 07:30)
DX: R31.0 Gross hematuria (principal); N32.89 Other specified disorders of bladder; Q90.9 Down syndrome, unspecified
CPT/HCPCS: 52204; 52005; 88305; 74420; J0690; J1100; J1885; J2001; J2405; J2704; Q9967

== ENCOUNTER → 2022-12-08 12:44 | Outpatient (BNVA) | payer OTHER, SELFPAY | PROVIDERS: PCP Nurse Practitioner Family; Referring Provider Nurse Practitioner Family; Visit Provider Nurse Practitioner Gerontology | DX: R31.0 Gross hematuria (principal) | CPT/HCPCS: 81003; 99214 ==

== ENCOUNTER 2022-12-08 14:20 | Outpatient (REF) | payer OTHER, SELFPAY | END 2022-12-08 14:21 | disposition home or self-care (01) | LOC: LBN 14:20 | PROVIDERS: PCP Nurse Practitioner Family; Visit Provider Nurse Practitioner Gerontology | DX: R31.0 Gross hematuria (principal) | CPT/HCPCS: 87086 ==

== ENCOUNTER → 2022-12-21 14:25 | Outpatient (BNVA) | payer OTHER, SELFPAY | PROVIDERS: PCP Nurse Practitioner Family; Referring Provider Nurse Practitioner Family; Visit Provider Urology | DX: R31.0 Gross hematuria (principal); N32.89 Other specified disorders of bladder | CPT/HCPCS: 99214 ==

== ENCOUNTER → 2023-02-11 15:28 | Outpatient (BNVA) | payer OTHER, SELFPAY | PROVIDERS: PCP Nurse Practitioner Family; Referring Provider Nurse Practitioner Family; Visit Provider Nurse Practitioner Gerontology | DX: R31.0 Gross hematuria (principal); N32.89 Other specified disorders of bladder; N39.0 Urinary tract infection, site not specified | CPT/HCPCS: 81003; 99213 ==

== ENCOUNTER 2023-07-16 05:15 | Outpatient (CLI) | payer OTHER, SELFPAY ==
[2023-07-16 13:27] LABS: Calculated LDL 154 mg/dL (<100); Cholesterol 256 mg/dL (<200); HDL Cholesterol 91 mg/dL (40-60); Triglyceride 57 mg/dL (<150)
== END 2023-07-16 05:16 | disposition home or self-care (01) ==
LOC: LOS 05:16
PROVIDERS: PCP Nurse Practitioner Family; Visit Provider Nurse Practitioner Family
DX: E78.5 Hyperlipidemia, unspecified (principal); E03.9 Hypothyroidism, unspecified
CPT/HCPCS: 36415; 80061; 84443

== ENCOUNTER 2024-03-15 09:40 | Emergency (ER) | payer MEDICARE, SELFPAY ==
[2024-03-15] VITALS (9 sets, daily range): BP systolic 104–176; BP diastolic 64–156; PULSE 65–90; RESP 15–19; TEMP 35.9–36; O2SAT 96–100
--- NOTE | 2024-03-15 09:45 | RT.EKG_ITS ---
APPROVED REPORT Exam: Resting ECG Reason for Exam: [facility] Patient Location: E HR:81 bpm ECG Measurements Heart Rate 81 AXIS [place] 145 P 65 QRSd 73 QRS 9 QT 377 T -13 QTc 435 Conclusion Sinus rhythm...normal P axis, V-rate 60- 99 Left atrial enlargement...P, P'>60mS, <-0.15mV V1 motion artifact, no stemi
[2024-03-15 10:09] LABS: Abs Immature Grans 0.01 10^3/uL (0.0-0.06); Absolute Basophil Count 0.03 10^3/uL (0.0-0.2); Absolute Monocyte Count 0.36 10^3/uL (0.1-0.8); Absolute Neutrophil Count 1.63 10^3/uL (1.2-6.7); Basophils % 1.2 %; HCT 45.2 % (36.0-46.0); Immature Grans % 0.4 %; Lymphocytes % 16.5 %; MCH 34.8 pg (27.0-33.0); MCHC 33.2 % (32.0-36.0); MCV 105 fL (80-95); MPV 8.2 fL (8.0-11.0); Monocytes % 14.8 %; Neutrophils % 67.1 %; Platelet Count 250 10^3/uL (130-400); RBC 4.31 10^6/uL (3.93-5.22); RDW 13.7 % (11.7-14.6); RDW-SD 53.8 fL; WBC 2.43 10^3/uL (4.4-10.8)
--- NOTE | 2024-03-15 10:30 | DI.RAD_ITS ---
Exam(s) XR CHEST 2V PA LATERAL EXAM: XR CHEST 2V PA LATERAL CLINICAL HISTORY: ams TECHNIQUE: 2D digital imaging was performed. Two views. COMPARISON: No exams were available for comparison FINDINGS: HEART: Normal size. Aorta: Not dilated. PULMONARY VASCULATURE: Normal. MEDIASTINUM: Unremarkable. LUNGS: Clear. PLEURAL SPACE: No pleural effusion or pneumothorax. BONE:Scoliosis and spinal jahaira. SOFT TISSUES: Unremarkable. IMPRESSION: No acute abnormality. DATA REPOSITORY: RADIATION DOSE DELIVERED:
[2024-03-15 10:38] LABS: ALT 26 U/L (14-59); AST 28 U/L (15-37); Albumin 3.6 g/dL (3.4-5.0); Alkaline Phosphatase 108 U/L (46-116); Anion Gap 6.5 mmol/L (3-11); BUN 5 mg/dL (7-18); Bilirubin, Total 0.38 mg/dL (0.2-1.0); CO2 30.5 mmol/L (21.0-32.0); CREATININE 0.9 mg/dL (0.55-1.02); Calcium 8.4 mg/dL (8.5-10.1); Chloride 98 mmol/L (98-107); Estimated GFR 75.03 (mL/min/1.73m2); Glucose 149 mg/dL (74-106); Magnesium 2.3 mg/dL (1.8-2.4); Potassium 3.5 mmol/L (3.5-5.1); Sodium 135 mmol/L (136-145); TSH (W/Ref FT4) 7.17 uIU/mL (0.36-3.74); Total Protein 7.4 g/dL (6.4-8.2)
--- NOTE | 2024-03-15 10:52 | DI.CT_ITS ---
Exam(s) CT HEAD WO EXAM: CT HEAD WO CLINICAL HISTORY: period of unresponsiveness. TECHNIQUE: Imaging Protocol: Axial computed tomography images with coronal and sagittal reformatted images were created and reviewed COMPARISON: No exams were available for comparison FINDINGS: Ventricles and Extra axial spaces: Mildly enlarged ventricles, proportional to the degree of atrophy. Hemorrhage: None. Cerebral parenchyma: No evidence of acute infarct or mass. [id number] atrophy, disproportiona te to the patient's age. Midline shift: None. Brainstem/Cerebellum: Normal. Calvarium: Normal. Visualized Paranasal sinuses:Clear. Mastoids: Clear. Soft Tissues: Unremarkable. ORBITS: Unremarkable. PITUITARY: Not enlarged. IMPRESSION: No acute intracranial process. RADIATION DOSE DELIVERED: 1,827.05mGy.cm Total DLP DATA REPOSITORY: All CT scans at this facility are submitted to the National Radiology Data Registry (NRDR) Dose Index Registry (DIR) with the [employer] ([employer]). RADIATION OPTIMIZATION: All CT scans at this facility use at least one of these dose optimization te chniques: automated exposure control; mA and/or kV adjustment per patient size (includes targeted exa ms where dose is matched to clinical indication); or iterative reconstruction.
[2024-03-15 11:04] LABS: FREE T4 0.97 ng/dL (0.76-1.46)
--- NOTE | 2024-03-15 11:37 | ED.GENADUL_ITS ---
Discharge Plan Disposition Patient Disposition: Home Condition: Stable Discharge Details Clinical Impression: Influenza A, Blood in urine Primary Care Provider: Toribio Bean ED Provider: Avis Wang Home Meds and New Rx's Prescriptions: New oseltamivir [Tamiflu] 75 mg capsule 75 mg PO BID 5 Days Qty: 10 0RF Continued triamcinolone acetonide 0.1 % cream 1 applic topical BID Qty: 15 2RF lorazepam 1 mg tablet 1 mg PO DAILY PRN (Reason: anxiety) Qty: 28 0RF betamethasone dipropionate 0.05 % cream 1 applic topical BID PRN (Reason: rash) Qty: 45 0RF levothyroxine 50 mcg tablet 50 mcg PO DAILY Qty: 90 3RF Rx Instructions: Wed, , Sat : half pill. 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 HPI Narrative: The patient is a 58-year-old female with a history of Down syndrome and hypothyroidism who presents with a report of alteration in mental status this morning when she awoke. She was at her baseline when family took her out of her bed and brought her to the toilet. When they stood her up, she reportedly had her eyes roll into the back of her head quickly and became unresponsive for several seconds. She was incontinent of stool and urine, which is unusual for her. There was no obvious seizure-like activity. She regained consciousness relatively quickly and was at her baseline without any postictal state noted by EMS. Family members all have flu; however, she has not had fever or any vomiting consistent with family members. There have been no injuries. She has been at her baseline over the past several days. She has been eating and drinking within normal limits. Family reports no new medications or seizure history. Related Data Home Medications ?Medication ?Instructions ?Recorded ?Confirmed sennosides 8.6 mg tablet (Natural 8.6 mg PO DAILY 11/21/22 03/15/24 Senna Laxative) triamcinolone acetonide 0.1 % 1 applic topical BID #15 grams 07/28/23 03/15/24 topical cream lorazepam 1 mg tablet 1 mg PO DAILY PRN anxiety #28 tabs 10/22/23 03/15/24 betamethasone dipropionate 0.05 % 1 applic topical BID PRN rash #45 12/06/23 03/15/24 topical cream grams levothyroxine 50 mcg tablet 50 mcg PO DAILY #90 tabs 12/22/23 03/15/24 oseltamivir 75 mg capsule (Tamiflu) 75 mg PO BID 5 days #10 caps 03/15/24 Previous Rx's ?Medication ?Instructions ?Recorded triamcinolone acetonide 0.1 % 1 applic topical BID #15 grams 07/28/23 topical cream lorazepam 1 mg tablet 1 mg PO DAILY PRN anxiety #28 tabs 10/22/23 betamethasone dipropionate 0.05 % 1 applic topical BID PRN rash #45 12/06/23 topical cream grams levothyroxine 50 mcg tablet 50 mcg PO DAILY #90 tabs 12/22/23 oseltamivir 75 mg capsule (Tamiflu) 75 mg PO BID 5 days #10 caps 03/15/24 Allergies Allergy/AdvReac Type Severity Reaction Status Date / Time No Known Allergies Allergy Verified 03/15/24 09:57 General Stated Complaint: Seizure PAPITO: 3 Exam Narrative Exam Narrative: General Appearance: Patient is alert, 58-year-old female who is in no acute distress. Vital signs: Otherwise, stable vitals. HEENT: No visible sign of trauma, uvula midline, oropharynx patent, moist mucous membranes, no evidence of trauma to tongue or mouth. Tympanic membranes clear bilaterally. Respiratory: Lungs clear to auscultation. Cardiovascular: Cardiac rate rhythm, regular. Gastrointestinal: No abdominal tenderness, no visible vomiting. Back, Musculoskeletal: No cervical spine tenderness. Extremities: No evidence of trauma to lower extremities. Skin: Warm and dry, no rash. Neurological: Patient is at baseline per family member in room. Course Vital Signs Vital signs: Vital Signs Temperature 35.9 C L 03/15/24 09:40 Pulse 73 03/15/24 09:40 Respiratory Rate 15 03/15/24 09:40 Blood Pressure 113/65 03/15/24 09:40 Pulse Oximetry 99 03/15/24 09:40 Temperature 35.9 C L 03/15/24 09:40 Temperature Source Tympanic 03/15/24 09:40 Pulse 73 03/15/24 09:40 Respiratory Rate 15 03/15/24 09:40 Respiratory Effort Normal 03/15/24 09:49 Blood Pressure 113/65 03/15/24 09:40 Blood Pressure Position Sitting 03/15/24 09:40 Pulse Oximetry 99 03/15/24 09:40 Oxygen Delivery Method Room Air 03/15/24 09:40 Oxygen Flow Rate 0 03/15/24 09:40 Pain Level 0 03/15/24 09:40 Comment Pt unable to answer but does not appear to be in any distress, no guarding with evaluation, no crying or moaning out in pain 03/15/24 09:40 Lab/Test Results Lab/Test Results: Laboratory Tests Range/Units 03/15/24 10:05 WBC (4.4-10.8) 10^3/uL 2.43 L RBC (3.93-5.22) 10^6/uL 4.31 Hgb (11.2-15.7) g/dL 15.0 Hct (36.0-46.0) % 45.2 MCV (80-95) fL 105 H MCH (27.0-33.0) pg 34.8 H MCHC (32.0-36.0) % 33.2 RDW (11.7-14.6) % 13.7 Plt Count (130-400) 10^3/uL 250 MPV (8.0-11.0) fL 8.2 Immature Gran % % 0.4 Neutrophils % % 67.1 Lymphocytes % % 16.5 Monocytes % % 14.8 Eosinophils % % 0.0 Basophils % % 1.2 Nucleated RBC % (0.0-0.3) % 0.0 Absolute Neutrophils (1.2-6.7) 10^3/uL 1.63 Absolute Lymphocytes (1.2-3.4) 10^3/uL 0.40 L Absolute Monocytes (0.1-0.8) 10^3/uL 0.36 Absolute Eosinophils (0.0-0.7) 10^3/uL 0.00 Absolute Basophils (0.0-0.2) 10^3/uL 0.03 Sodium (136-145) mmol/L 135 L Potassium (3.5-5.1) mmol/L 3.5 Chloride (98-107) mmol/L 98 Carbon Dioxide (21.0-32.0) mmol/L 30.5 Anion Gap (3-11) mmol/L 6.5 BUN (7-18) mg/dL 5 L Creatinine (0.55-1.02) mg/dL 0.9 Est GFR (CKD-EPI 2020) (mL/min/1.73m2) 75.03 Glucose (74-106) mg/dL 149 H Calcium (8.5-10.1) mg/dL 8.4 L Magnesium (1.8-2.4) mg/dL 2.3 Total Bilirubin (0.2-1.0) mg/dL 0.38 AST (15-37) U/L 28 ALT (14-59) U/L 26 Alkaline Phosphatase (46-116) U/L 108 Total Protein (6.4-8.2) g/dL 7.4 Albumin (3.4-5.0) g/dL 3.6 TSH (0.36-3.74) uIU/mL 7.17 H Free T4 (0.76-1.46) ng/dL 0.97 Medical Decision Making Laboratory Studies Mild leukocytosis with white blood cell count 12.4. Glucose mildly elevated at 119. Imaging CT head does not show evidence of acute abnormality. Chest x-ray does not show evidence of obvious infection. Testing Urinalysis shows blood but not gross hematuria. Initial Assessment: 58-year-old female with Down syndrome and hypothyroidism presenting with altered mental status, possible syncope, seizure, or dysrhythmia. Differential Diagnosis: - Syncope: Considered due to transient loss of consciousness. No recurrent episodes noted. Plan: Monitor and follow-up. - Seizure: Considered due to unresponsiveness and incontinence. No postictal state observed. Plan: Monitor and follow-up. - Dysrhythmia: Considered due to possible cardiac cause. EKG and telemetry showed no dysrhythmia. Plan: Monitor and follow-up. ED Course: - EKG, diagnostic labs, CT head, chest x-ray, and urinalysis ordered. - Influenza, COVID-19, and RSV tests ordered. - CT head: No acute abnormality (read by me). - Chest x-ray: No obvious infection (read by me). - Labs: Mild leukocytosis (WBC 12.4), glucose 119, other labs normal. - Urinalysis: Blood present, no gross hematuria. - Telemetry: No dysrhythmia, no recurrent episodes of altered mental status. - Patient drinking boris ryan and applesauce. - Offered Tamiflu with risks and benefits reviewed. - Recommended Mucinex Children's liquid for home use. - Encouraged recheck of urinalysis by primary care physician. - Return precautions reviewed, patient expressed understanding. - Discharged home in stable condition. - Advised to recheck thyroid level with primary care physician (TSH 7 during today's visit). Final Assessment: Patient with Down syndrome and hypothyroidism presented with altered mental status, possible syncope, seizure, or dysrhythmia. Diagnostic tests showed no acute abnormalities. Mild leukocytosis and slightly elevated glucose noted. No dysrhythmia or recurrent episodes observed. Discharged in stable condition with follow-up instructions. Clinical Impression: - Altered mental status - Possible syncope - Possible seizure - Possible dysrhythmia Disposition: - Discharge: Home in stable condition. - Follow-Up: Recheck urinalysis and thyroid level with primary care physician. Follow up in 24 to 48 hours. MDM Components Evaluation: - Number of Differential Diagnoses or Management Options: Syncope, Seizure, Dysrhythmia. - Amount and Complexity of Data Reviewed: EKG, diagnostic labs, CT head, chest x-ray, urinalysis, influenza, COVID-19, and RSV tests. - Risk of Complication and Morbidity or Mortality: Moderate risk due to altered mental status and potential cardiac or neurological causes. Quality:SDOH Health Related Social Needs: No Data to Display PFSH All Active Problems (Updated 03/15/24 @ 13:12 by NEGIN Freeman) Blood in urine (Acute) Influenza A (Acute) Acute otitis externa of both ears (Acute) Nonverbal (Acute) Loss of hearing (Acute) Bowel and bladder incontinence (Acute) Constipation (Acute) Urinary tract infection (Acute) Bilateral impacted cerumen (Acute) Rash (Acute) Subluxation of patella (Acute) Hyperlipemia (Acute) Blood glucose elevated (Acute) Hypothyroidism (Chronic) Down syndrome (Acute) Medical History Hip dislocation, right Surgical History Previous back surgery metal jahaira in spine Family History Mother , 82 No problems noted. Father , 69 Bladder cancer Sister No problems noted. Brother No problems noted. Social History Smoking/Tobacco Use Status: Never Second Hand Exposure: No Smoking risk assessment performed?: Yes Alcohol Intake: never Drug use: Never Substance use type: does not use Caregiver/Support person: Yes Household members: family Housing: house Communication Needs: Hard of Hearing, Sign Language, Cannot Read and Language Barriers Do you need help understanding health information?: Always Pets and animals: Yes Pets and animals: dog(s) Sexually active: No Current gender identity: female How often do you talk on the phone with friends or family?: never How often do you get together with friends or relatives?: once per week How often do you attend mormonism or restoration services?: decline to answer Do you belong to any clubs or organized social groups?: no Panel score (0-1 are the most socially isolated patients): 0 What type of physical activity do you participate in: none Frequency: does not exercise Helen/Mormonism: No preference Seatbelt use: always Helmet use: No Drive intox or ride w/intox swing driver: No Additional Social history: UNABLE TO ASSESS
[2024-03-15 11:51] LABS: COVID-19 PCR Negative (Negative); Influenza A PCR Positive (Negative); Influenza B PCR Negative (Negative); RSV PCR Negative (Negative)
[2024-03-15 11:55] LABS: Source Nasopharynx
[2024-03-15 12:48] LABS: Bilirubin Negative (Negative); Blood Large (Negative); Clarity Sl Cloudy (Clear); Glucose Negative (Negative); Ketones Trace mg/dL (Negative); Leukocyte Esterase Negative (Negative); Nitrite Negative (Negative); Urobilinogen 0.2 mg/dL (Up to 0.2)
[2024-03-15 12:56] LABS: Bacteria Few HPF (Negative); C & S Indicated? No; Casts 0-2 Fine Granular LPF (Negative); Crystals Rare Amorphous HPF (Negative); Epithelial Cells Rare HPF (Negative); Mucus Negative (Negative); RBC >50 HPF (0-2)
== END 2024-03-15 13:37 | disposition home or self-care (01) ==
PROVIDERS: Emergency Provider Physician Assistant; PCP Nurse Practitioner Family
DX: J10.1 Influenza due to other identified influenza virus with other respiratory manifestations (principal); R31.9 Hematuria, unspecified; E03.9 Hypothyroidism, unspecified; Q90.9 Down syndrome, unspecified
CPT/HCPCS: 36415; 80053; 82962; 87637; 93005; 99285; 70450; 71046; 81003; 81015; 83735; 84439; 84443; 85025; 93010; 99284

== ENCOUNTER 2024-05-22 17:49 | Outpatient (REF) | payer MEDICARE, SELFPAY ==
[2024-05-22 17:21] LABS: Abs Immature Grans 0.01 10^3/uL (0.0-0.06); Absolute Basophil Count 0.14 10^3/uL (0.0-0.2); Absolute Lymphocyte Count 1.15 10^3/uL (1.2-3.4); Absolute Monocyte Count 0.34 10^3/uL (0.1-0.8); Eosinophils % 2.8 %; HCT 40.4 % (36.0-46.0); HGB 12.9 g/dL (11.2-15.7); Immature Grans % 0.3 %; Lymphocytes % 32.5 %; MCH 33.6 pg (27.0-33.0); MCHC 31.9 % (32.0-36.0); MCV 105 fL (80-95); MPV 8.7 fL (8.0-11.0); Monocytes % 9.6 %; Neutrophils % 50.8 %; Platelet Count 454 10^3/uL (130-400); RBC 3.84 10^6/uL (3.93-5.22); RDW-SD 54.5 fL; WBC 3.54 10^3/uL (4.4-10.8)
[2024-05-22 17:32] LABS: Iron 63 ug/dL (50-170); Total Iron Binding Capacity 299 ug/dL (250-450); Transferrin Sat 21 % (15-50)
[2024-05-22 17:57] LABS: ALT 17 U/L (14-59); AST 19 U/L (15-37); Albumin 2.9 g/dL (3.4-5.0); Alkaline Phosphatase 102 U/L (46-116); Anion Gap 8.5 mmol/L (3-11); BUN 11 mg/dL (7-18); Bilirubin, Total 0.2 mg/dL (0.2-1.0); CO2 28.5 mmol/L (21.0-32.0); CREATININE 0.7 mg/dL (0.55-1.02); Calcium 8.7 mg/dL (8.5-10.1); Chloride 104 mmol/L (98-107); Estimated GFR 101.44 (mL/min/1.73m2); Ferritin 56 ng/mL (8-252); Folate 3.3 ng/mL (8.6-20.0); Glucose 140 mg/dL (74-106); Magnesium 2.5 mg/dL (1.8-2.4); Potassium 4.3 mmol/L (3.5-5.1); Sodium 141 mmol/L (136-145); TSH (W/Ref FT4) 4.31 uIU/mL (0.36-3.74); Total Protein 6.7 g/dL (6.4-8.2); Vitamin B12 255 pg/mL (193-986)
[2024-05-22 18:07] LABS: Diff Comment RBC Morph Reviewed; Macrocytosis 1+; Ovalocytes 2+
[2024-05-22 19:38] LABS: FREE T4 0.74 ng/dL (0.76-1.46)
== END 2024-05-22 17:50 | disposition home or self-care (01) ==
LOC: LBN 17:49
PROVIDERS: PCP Nurse Practitioner Family; Visit Provider Nurse Practitioner Gerontology
DX: D50.9 Iron deficiency anemia, unspecified (principal); E03.9 Hypothyroidism, unspecified; E87.8 Other disorders of electrolyte and fluid balance, not elsewhere classified; D51.9 Vitamin B12 deficiency anemia, unspecified; R53.82 Chronic fatigue, unspecified; D63.1 Anemia in chronic kidney disease
CPT/HCPCS: 80053; 82607; 82728; 82746; 83540; 83550; 83735; 84439; 84443; 85025

== ENCOUNTER 2024-08-10 17:53 | Outpatient (REF) | payer MEDICARE, SELFPAY ==
[2024-08-10 20:05] LABS: TSH (W/Ref FT4) 5.49 uIU/mL (0.36-3.74)
== END 2024-08-10 17:54 | disposition home or self-care (01) ==
LOC: LBN 17:53
PROVIDERS: Visit Provider Nurse Practitioner Gerontology
DX: R53.82 Chronic fatigue, unspecified (principal)
CPT/HCPCS: 84439; 84443

== ENCOUNTER 2024-11-14 14:31 | Outpatient (REF) | payer MEDICARE, SELFPAY ==
[2024-11-14 14:54] LABS: Abs Immature Grans 0.01 10^3/uL (0.0-0.06); HCT 42.1 % (36.0-46.0); HGB 13.7 g/dL (11.2-15.7); Immature Grans % 0.3 %; MCH 32.7 pg (27.0-33.0); MCHC 32.5 % (32.0-36.0); MCV 101 fL (80-95); MPV 8.7 fL (8.0-11.0); Platelet Count 418 10^3/uL (130-400); RBC 4.19 10^6/uL (3.93-5.22); RDW 13.7 % (11.7-14.6); RDW-SD 50.4 fL; WBC 3.42 10^3/uL (4.4-10.8)
[2024-11-14 15:13] LABS: ALT 20 U/L (14-59); AST 22 U/L (15-37); Albumin 3.2 g/dL (3.4-5.0); Alkaline Phosphatase 98 U/L (46-116); Anion Gap 8.2 mmol/L (3-11); BUN 12 mg/dL (7-18); Bilirubin, Total 0.3 mg/dL (0.2-1.0); CO2 26.8 mmol/L (21.0-32.0); Calcium 8.4 mg/dL (8.5-10.1); Chloride 105 mmol/L (98-107); Estimated GFR 86.42 (mL/min/1.73m2); Glucose 166 mg/dL (74-106); Magnesium 2.4 mg/dL (1.8-2.4); Potassium 4.2 mmol/L (3.5-5.1); Sodium 140 mmol/L (136-145); TSH (W/Ref FT4) 9.28 uIU/mL (0.36-3.74); Total Protein 6.8 g/dL (6.4-8.2)
== END 2024-11-14 14:32 | disposition home or self-care (01) ==
LOC: LBN 14:31
PROVIDERS: Visit Provider Nurse Practitioner Gerontology
DX: E87.8 Other disorders of electrolyte and fluid balance, not elsewhere classified (principal); R53.82 Chronic fatigue, unspecified
CPT/HCPCS: 80053; 83735; 84439; 84443; 85025

== ENCOUNTER 2025-01-01 16:41 | Outpatient (REF) | payer MEDICARE, SELFPAY ==
[2025-01-01 17:43] LABS: Abs Immature Grans 0.01 10^3/uL (0.0-0.06); HCT 43.1 % (36.0-46.0); HGB 14.1 g/dL (11.2-15.7); Immature Grans % 0.2 %; MCH 33.1 pg (27.0-33.0); MCHC 32.7 % (32.0-36.0); MCV 101 fL (80-95); MPV 9.2 fL (8.0-11.0); Platelet Count 336 10^3/uL (130-400); RBC 4.26 10^6/uL (3.93-5.22); RDW 14.2 % (11.7-14.6); RDW-SD 53.1 fL; WBC 4.75 10^3/uL (4.4-10.8)
[2025-01-01 18:01] LABS: ALT 20 U/L (10-49); AST 29 U/L (<34); Albumin 4.0 g/dL (3.4-5.0); Alkaline Phosphatase 86 U/L (46-116); Anion Gap 7.5 mmol/L (3-11); BUN 12 mg/dL (9-23); Bilirubin, Total 0.50 mg/dL (0.2-1.2); CO2 29.5 mmol/L (20.0-31.0); Calcium 9.1 mg/dL (8.3-10.6); Chloride 105 mmol/L (98-107); Glucose 97 mg/dL (74-106); Potassium 4.5 mmol/L (3.5-5.1); Sodium 142 mmol/L (136-145); Total Protein 6.8 g/dL (5.7-8.2)
[2025-01-01 18:03] LABS: TSH (W/Ref FT4) 0.88 uIU/mL (0.55-4.78)
== END 2025-01-01 16:42 | disposition home or self-care (01) ==
LOC: LBN 16:41
PROVIDERS: PCP Legal Medicine; Visit Provider Nurse Practitioner Gerontology
DX: E03.9 Hypothyroidism, unspecified (principal); D63.1 Anemia in chronic kidney disease; E87.8 Other disorders of electrolyte and fluid balance, not elsewhere classified
CPT/HCPCS: 80053; 80177; 84443; 85025